=== PATIENT | male | born 1950 | race Caucasian/White ===

== ENCOUNTER 2016-10-28 14:07 | Inpatient (IN) | payer MEDICARE ==
[~2016-10-28] VITALS: Ht 182.9 cm; Wt 123.1 kg
--- NOTE | ~2016-10-28 | PN ---
PATIENT:GAGE ALONSO MEDICAL RECORD: [id number] LOCATION:DAVID Arvizu112 ADMISSION DATE: 10/28/16 PROGRESS NOTE DATE OF SERVICE: 11/16/2016 SUBJECTIVE: The patient's case was discussed with staff. He has no new complaint. OBJECTIVE: The patient is in good behavioral control with limited insight about his condition. He tolerates his medicines well. ASSESSMENT: No change in diagnoses. PLAN: The patient's family has decided to take him home. His son is going to live with the patient and his . The family made this decision based on the fact that they would have to sell their farm to place him in the alf and they do not want to do that. The is in agreement with this. This is contrary to our recommendations and contrary with the family has asked us to do. The importance of not allowing him to drink and providing 92-yqro-q-day supervision, that is independent of the elderly being present there, is important and was stressed to them. The family has agreed to do this. I am not entirely sure they are going to follow through with these recommendations, but they say they will. I do not approve of this placement, but it does not rise to the level of reporting it to the state authorities. This patient has the potential to be aggressive and dangerous particularly if he drinks and he should not drink at all and he should have supervision 24-hours a day should not drive and that supervision that he had should not be his , she is too old to frail, too small to handle him. TRANSINT:[id number] Voice Confirmation ID: [id number] DOCUMENT ID: [id number] LISA MCCRARY MD CC: [id number] DICTATION DATE: 11/16/16 1258 HOSPITAL INSURANCE REPRESENTATIVE: 11/16/16 1347 DIS IN 11/16/16 [facility] [address] [place] [address]
[2016-10-28] MEDS ORDERED: OXYBUTYNIN CHLOR5 MG PO (14:10)
[2016-10-28] MEDS ORDERED: ZITHROMAX500 MG PO (14:10)
[2016-10-28] MEDS ORDERED: ZESTORETIC 20-1 EACH PO (14:12)
[2016-10-28] MEDS ORDERED: KLONOPIN1 MG PO (14:13)
[2016-10-28] MEDS ORDERED: OMEPRAZOLE20 M1 PO (14:13)
[2016-10-28] MEDS ORDERED: ZOLOFT100 MG PO (14:14)
[2016-10-28] MEDS ORDERED: TRAZODONE HCL50 MG PO (14:14)
[2016-10-28] MEDS ORDERED: OMEGA 3 FISH OI1 CAP PO (14:15)
[2016-10-28] MEDS ORDERED: RED YEAST RICE600 MG PO (14:16)
[2016-10-28] MEDS ORDERED: HYDROCODONE-APA1 TAB PO (14:16)
[2016-10-28] MEDS ORDERED: CHOLESTYRAMIN4 G/PK1 PO (14:17)
[2016-10-28] MEDS ORDERED: VITAMIN D2 PO (14:21)
[2016-10-28] MEDS ORDERED: ASPIRIN EC81 M1 PO (15:58)
[2016-10-28] MEDS ORDERED: ACETAMINOPHEN325 MG PO (15:59)
[2016-10-28] MEDS ORDERED: ALPHAGAN 0.2%5 ML EACH EYE (16:00)
[2016-10-28] MEDS ORDERED: BENADRYL25 MG PO (16:02)
[2016-10-28] MEDS ORDERED: LOVENOX40 MG/0.4 SC (16:03)
[2016-10-28] MEDS ORDERED: [UNRECOGNIZED DRUG - OTHER] PO (16:07)
[2016-10-28] MEDS ORDERED: HALDOL5 MG/ML IM (16:08)
[2016-10-28] MEDS ORDERED: VITAMIN B-1100 M1 PO (16:09)
[2016-10-28] MEDS ORDERED: MULTIPLE VITAMI1 TA1 PO (16:09)
[2016-10-28] MEDS ORDERED: SEROQUEL25 MG PO (16:11)
[2016-10-28] MEDS ORDERED: NITROSTAT0.4 MG SL (16:12)
[2016-10-28] MEDS ORDERED: NALOXONE HC0.4 MG/M2 IV (16:13)
[2016-10-28] MEDS ORDERED: COREG 3.1253.125 MG PO (16:20)
[2016-10-28 18:42] VITALS: BP 100/60
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
[2016-10-28 20:00] LABS: APPEARANCE CLEAR (CLEAR); BILIRUBIN NEGATIVE (NEGATIVE); COLOR YELLOW (YELLOW); GLUCOSE NEGATIVE (NEGATIVE); KETONE NEGATIVE (NEGATIVE); LEUKOCYTE ESTERASE NEGATIVE (NEGATIVE); NITRITE NEGATIVE (NEGATIVE); PROTEIN NEGATIVE (NEGATIVE); SPECIFIC GRAVITY 1.015 (1.005-1.020); UROBILINOGEN NORMAL (NORMAL)
[2016-10-28 20:44] VITALS: BP 148/77
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
[2016-10-29 08:07] VITALS: BP 130/70
[2016-10-29 09:34] LABS: HEMOGLOBIN A1C 5.3 % (4.8-6.0)
[2016-10-29 09:47] LABS: CHOL - HDL RATIO 6.6 ratio (2.3-4.9); LDL-HDL RATIO 4.7 ratio (1.5-3.5); THYROID STIMULATING HORMONE 5.8 uIU/mL (0.36-3.74)
--- NOTE | 2016-10-29 10:30 | NUR ---
PATIENT REFUSES HIS NICOTINE PATCH, HIS REASONING IS THAT IF HE HAS A PATCH AND THEN SMOKES IT CAN MAKE HIM SICK, TRIED TO EXPLAIN TO HIM THAT HE WILL NOT BE SMOKING. PATIENTS EYES ARE ETREMELY RED AND HE REFUSES TO ALLOW NURSES TO PUT EYE DROPS IN HIS EYES, HE SAYS IT OLIVER.
--- NOTE | 2016-10-29 11:46 | NUR ---
B) PATIENT IS AWAKE AND ALERT, HE DOES NOT LIKE TO BE REDIRECTED. HE HAS BEEN SEEN TOUCHING OTHER PATIENTS. HE HAS HAD TO BE REDIRECTED. HE HAS TRIED TO BE HELPFUL, BUT WE HAD TO TELL HIM THAT STAFF WILL HELP. HE IS UPSET THAT HE HAS RULES. I) PROVIDE PRESCRIBED MEDS. R) PATIENT IS COMPLIANT WITH MEDS. P) CONTINUE POC.
--- NOTE | 2016-10-29 12:15 | NUR ---
PATIENT BEGINNING TO HALLUCINATE, HE SAYS "THE POLICE WILL BE HERE IN 15 MIBUTES TO ARREST EVERYONE AND THEY WILL BUST THE DOOR DOWN" PATIENT IS USING HIS HANDS TO LOOK THROUGH THOUGH THEY ARE BINOCULARS. PATIENT REFUSES TO LET ME TAKE HIS BP.
--- NOTE | 2016-10-29 12:17 | NUR ---
PATIENT IS EXIT SEEKING HE WOULD NOT ALLOW STAFF TO PASS THROUGH THE DOUBLE DOORS BY THE DAY ROOM.
--- NOTE | 2016-10-29 12:22 | NUR ---
JENNIFER SPANGLER CALLED AND STAFFING ANALYST SPEAKING WITH PATIENT. PATIENT IS MAKING PARANOID STATEMENTS STATING "YOU SHOULD HAVE SEEN HOW EVERYONE WAS TALKING TO ME, THEY RAN ME OUT OF THERE". DID GIVE PATIENT A 2 MG ATIVAN IM IN HIS LEFT DELTOID. PATIENT IS GETTING LOUDER AND LOUDER, ASKED THE STAFFING ANALYST TO STAY AWHILE UNTIL THE PATIENT WAS ABLE TO CALM HIMSELF. PATIENT HAS PICKED AT HIS ARMS AND THEY NOW LOOK LIKE SKIN TEARS.
--- NOTE | 2016-10-29 12:35 | NUR ---
CALLED PATIENT'S SPOUSE TO LET HER KNOW THAT VISITING TODAY WILL NOT BE A GOOD IDEA. LEFT A MESSAGE ON HER ANSWERING MACHINE. THE REASON IS THAT PATIENT IS BEING TOO VERBALLY THREATENING AND HE IS PARANOID WITH DELUSIONS, ATTEMPTING TO BE INTIMIDATING.
--- NOTE | 2016-10-29 13:30 | NUR ---
PATIENT IS STILL IRRITABLE, BUT HE IS NOT THREATENING, HE DID PEEL HIS SCAB OFF OF HIS ARM AND NOW IT IS A SKIN TEAR. DID CLEANSE AREA AND APPLIED A DRESSING.
--- NOTE | 2016-10-29 14:58 | NUR ---
SPOUSE UNDERSTANDS ABOUT NOT VISITING, BUT SHE DID BRING PATIENT SOME CLOTHES.
[2016-10-29 19:00] VITALS: BP 111/68
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
[2016-10-30 07:00] VITALS: BP 140/62
--- NOTE | 2016-10-30 12:55 | NUR ---
B) PATIENT ALERT AND COOPERATIVE WITH ASSESSMENT. SAYS HE HAS ALZHEIMERS AND IT HAPPENED QUICKLY, AND I JUST CAN NOT REMEMBER THINGS ANYMORE. NO AGGREESSION OR HALLUCINATIONS CURRENTLY. SELF-PROPELS IN WHEELCHAIR. DOES TRANSFER TO RECLINE TO REST HIS EYES. BILATERAL EYES VERY RED. I) ADMINISTERED PRESCRIBED MEDICATIONS, BUT PATIENT REFUSED NICOTINE PATCH, QUESTRAN AND EYE DROPS BECAUSE HIS EYES ARE BURNING. R) COMPLIANT WITH MOST OF MEDICATIONS. REDIRECT AND REORIENT NEEDED. P) MAINTAIN FALL PRECAUTIONS AND CONTINUE PLAN OF CARE.
[2016-10-30 19:30] VITALS: BP 104/61
--- NOTE | 2016-10-30 20:30 | NUR ---
RECEIVED IN HALLWAY SITTING OUTSIDE OF NURSES STATION SOCAILIZING WITH PEERS. VERY NEGATIVE. CALM AND COOPERATIVE WITH CARE. REDIRECT AND REORIENT NEEDED. CONTINUES TO SIT IN HALLWAY SOCIALIZING WITH PEERS. CONTINUE PLAN OF CARE
[2016-10-31 07:00] VITALS: BP 116/75
--- NOTE | 2016-10-31 11:00 | NUR ---
PATIENT IS ALERT THIS AM. ADMINISTERED PRESCRIBED MEDICATIONS. COMPLIANT WITH TAKING MEDS. ASSESSMENT COMPLETED. CONTINUE PLAN OF CARE.
--- NOTE | 2016-10-31 13:31 | PSY ---
PATIENT NAME:GAGE ALONSO MEDICAL RECORD: [id number] : 46 LOCATION:DAVID Romero2 ADMISSION DATE: 10/28/16 ACCOUNT: [id number] PSYCHIATRIC EVALUATION DATE OF EVALUATION: 10/29/16 Psychiatric Evaluation IDENTIFYING DATA: The patient is 66 years old and he is admitted to the hospital on a voluntary basis. CHIEF COMPLAINT: Confusion. HISTORY OF PRESENT ILLNESS: The patient was referred here from [facility]. He apparently was there with hyponatremia, probably secondary to drinking too much alcohol. He says that he has not had anything to drink for 2 weeks. He says prior to that, he would drink about 15 beers a day. Records from the transferring hospital indicated 6-10 beers a day. Apparently, he was not eating very much. His has left him; he says he has no idea why. They have been for many years and apparently stopped eating. He is only 66 years old, but he weighs 275 pounds, has not been eating, has been drinking too much. He also has some history of some back surgeries, but it seems that all of these things have made him pretty unstable on his feet. They did evaluate him at the other hospital for head trauma and there was no indication of any injury internally or externally. Apparently, he has a lot of depressive symptoms, but he has made no statements about wanting to harm himself. He has smoked for many years apparently drinks too much, although the exact amount is unknown and he clearly is having some cognitive impairment. PAST MEDICAL HISTORY: Significant for hypertension, chronic back pain and gastroesophageal reflux disease. PAST PSYCHIATRIC HISTORY: Significant for anxiety, depression and alcoholism. FAMILY HISTORY: Unknown. SOCIAL HISTORY: The patient has adult sons and a of many years, who has left him for reasons he does not seem to know. He is a retired chicken ruggiero and he has no history of legal entanglements. MENTAL STATUS EXAMINATION: The patient is awake, alert and oriented to person, place and somewhat to time and situation. His mood is flat. His affect is appropriate. Thought processes are circumstantial and his memory, concentration and abstraction abilities are moderately impaired. He denies that he would seek to harm himself or others. He denies psychotic symptoms. ALLERGIES: PENICILLIN. CURRENT MEDICATIONS: Lovenox, cholestyramine, aspirin, Seroquel, Zoloft, trazodone, Klonopin, Protonix, Ditropan, hydrochlorothiazide, lisinopril, thiamine and multivitamin. ASSETS: Stable living environment. LIABILITIES: Poor insight. DIAGNOSTIC IMPRESSION: AXIS I: Alcohol-related dementia, alcoholism and major depression. AXIS II: Deferred. AXIS III: Hypertension and obesity. AXIS IV: Moderate stressors. AXIS V: Global assessment of functioning is 35. PLAN: At this time, the patient is admitted to the hospital secondary to confusion, agitation and threatening behavior associated with a dementia cause from alcoholism. He will be comprehensively evaluated and arrangements will be made for the least restrictive environment that can meet his needs. He will be observed for alcohol withdrawal. His long-term prognosis is guarded. TRANSINT:[id number] Voice Confirmation ID: [id number] DOCUMENT ID: [id number] LISA MCCRARY MD at 1331 CC: [id number] DICTATION DATE: 10/29/16 0847 CHAIRMAN AND CEO: 10/29/16 1209 ADM IN [facility] [address] [place] [address]
[2016-10-31 20:00] VITALS: BP 131/64
--- NOTE | 2016-10-31 22:50 | NUR ---
RECEIVED IN HALLWAY OUTSIDE OF NURSES STATION. SOCIALIZING WITH PEERS AND STAFF. CALM AND COOPERATIVE WITH STAFF AND PEERS. CALM AND COOPERATIVE WITH CARE AND ASSESSMENTS. NO SIGNS OF AGGRESSION. RESTING IN BED EYES CLOSED. CONTINUE PLAN OF CARE
[2016-11-01 07:00] VITALS: BP 127/74
[2016-11-01 07:22] LABS: RAPID PLASMA REAGIN Non Reactive (Non Reactive)
--- NOTE | 2016-11-01 13:20 | PN ---
PATIENT:GAGE ALONSO MEDICAL RECORD: [id number] LOCATION:DAVID Romero ADMISSION DATE: 10/28/16 PROGRESS NOTE DATE OF SERVICE: 10/31/2016 SUBJECTIVE: The patient's case was discussed with staff. He has no new complaint. OBJECTIVE: The patient is in good behavioral control with limited insight about his condition. He tolerates his medicines well. ASSESSMENT: No change in diagnoses. PLAN: Brief supportive and educational interventions were made. The patient's long-term prognosis is guarded. He clearly is impaired cognitively. He has had no evidence of alcohol withdrawal and I am going to reduce his Klonopin slightly. TRANSINT:[id number] Voice Confirmation ID: [id number] DOCUMENT ID: [id number] LISA MCCRARY MD at 1320 CC: [id number] DICTATION DATE: 10/31/16 1340 RETAIL ADVISOR: 10/31/16 1454 ADM IN [place] [id number] [place] [address]
--- NOTE | 2016-11-01 13:59 | NUR ---
PATIENT IS PLEASANT. TOOK ALL MEDICATIONS WITHOUT DIFFICULTY. DRESSING TO RIGHT FOREARM DONE. HEALING NOTED. SITTING IN A CHAIR IN DAY ROOM. VISITING WITH THE OTHER RESTIDENTS.
[2016-11-01 19:15] VITALS: BP 131/70
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
--- NOTE | 2016-11-02 09:26 | NUR ---
PT ALERT, SITTING UP IN DAYROOM. PT AM MEDS ADMINISTERED. PT TOOK MEDS WITHOUT DIFFICULTY. PT DENIES NEEDS. WCTM.
[2016-11-02 18:25] VITALS: BP 131/66
--- NOTE | 2016-11-02 19:01 | NUR ---
RECEIVED IN DAYROOM. MOVING ABOUT SOCIALIZING WITH PEERS. CALM AND COOPERATIVE WITH CARE AND ASSESSMENTS. NO SIGNS OF AGGRESSION. REDIRECT AND REORIENT NEEDED. CONTINUES TO SIT QUIETLY IN WHEELCHAIR. CONTINUE PLAN OF CARE
[2016-11-02 20:18] VITALS: BP 127/69
--- NOTE | 2016-11-03 04:34 | PN ---
PATIENT:GAGE ALONSO MEDICAL RECORD: [id number] LOCATION:DAVID Romero ADMISSION DATE: 10/28/16 PROGRESS NOTE DATE OF SERVICE: 11/02/2016 SUBJECTIVE: The patient states that his came to pick him up last night. OBJECTIVE: The patient scored very poorly on the [facility] Mental Status exam (). He does have confirmed dementia and mcc placement is recommended. However, this has not been secured yet. On exam, mood is for the most part euthymic. Affect is shallow. Speech is somewhat tangential. Content of thought is negative for overt psychosis. Sensorium unchanged. ASSESSMENT: No change in diagnosis. PLAN: 1. Continue current medications. 2. Continue supportive therapy. TRANSINT:[id number] Voice Confirmation ID: [id number] DOCUMENT ID: [id number] USHA SANTO III, MD at 0434 CC: [id number] DICTATION DATE: 11/02/16 1138 SUPERVISOR GLUING: 11/02/16 1644 ADM IN [place] [id number] [place] [id number]
--- NOTE | 2016-11-03 04:38 | NUR ---
PATIENT LEFT HIS ROMM AT 01:30 AND CAME TO NURSES STATION, DEFIANT AND REFUSED TO GO BACK TO HIS ROOM, YELLING AND REDIRECTED TO GO BACK TO HIS ROOM, PATIENT DID GO BACK TO HIS ROOM ONLY TO RETURN AGAIN AT 01:50 REDIRECTED BACK TO HIS ROOM, VERBALLY ABUSIVE AND THREATING STAFF, PATIENT THEN ATTEMPTED TO STRIKE MHT, PATIENT PLACED ON FLOOR WHERE HE CONTINUED TO TRY TO STRIKE STAFF, PRN ATIVAN 2 MG IM AND HALDOL 2 MG IM GIVE FOR ANXIETY AND AGGRESSION, PATIENT REFUSED TO ALLOW STAFF TO ASSIST HIM IN BED OR A CHAIR, PATIENT PULLED COVERS OFF BED AND SLEPT IN THE FLOOR.WILL CONTINUE TO MONITOR.
[2016-11-03 08:00] VITALS: BP 114/65
--- NOTE | 2016-11-03 16:42 | NUR ---
PATIENT IS UPSET THAT HIS FAMILY JUST LEFT WHILE HE WAS IN THE BATHROOM. HE IS ANGRY WITH THEM AND BEGINNING TO ESCALATE AND BECOME IRRITABLE. DID PROVIDE ATIVAN 2 MG PO AND HALDOL 2 MG PO.
--- NOTE | 2016-11-03 17:40 | NUR ---
PATIENT IS SLEEPING IN DAY ROOM. NO PROBLEM AT THIS TIME.
[2016-11-03 19:45] VITALS: BP 91/54
--- NOTE | 2016-11-04 03:10 | NUR ---
B) Patient alert and oriented to self, calm and cooperative this shift, no behaviors noted, I) Administered schduled medication, redirected as needed, monitored for safety, R) Medication compliant, resting in bed, P) Continue plan of care.
--- NOTE | 2016-11-04 05:41 | PN ---
PATIENT:GAGE ALONSO MEDICAL RECORD: [id number] LOCATION:DAVID Romero ADMISSION DATE: 10/28/16 PROGRESS NOTE DATE OF SERVICE: 11/03/2016 SUBJECTIVE: No new complaint. OBJECTIVE: The patient continues to exhibit inappropriate behavior from time to time. He does require redirection. Additional history obtained from the patient's by case management indicates the patient was consuming on an average of 12-15 beers per day. On exam, the patient's mood is somewhat irritable. Affect is shallow. Speech is repetitive. Content of thought shows no evidence of overt psychosis. Sensorium is unchanged. ASSESSMENT: No change in diagnosis. PLAN: 1. Advance Seroquel to 100 mg b.i.d. 2. Continue other current medications. 3. Continue supportive therapy. TRANSINT:[id number] Voice Confirmation ID: [id number] DOCUMENT ID: [id number] USHA SANTO III, MD at 0541 CC: [id number] DICTATION DATE: 11/03/16 1234 BROOMCORN THRESHER: 11/03/162013 ADM IN [facility] [address] [place] [address]
--- NOTE | 2016-11-04 08:33 | NUR ---
B) PATIENT IS AWAKE AND ALERT, HE IS ORIENED TO SELF, BUT KNOWS HE IS HERE. HE CAN AMBULATE WITH A WALKER, BUT SITS IN A W/C AND SELF PROPELS MOSTLY. I) PROVIDE PRESCRIBED MEDS. R) PATIENT IS COMPLIANT WITH MEDS. P) CONTINUE POC.
--- NOTE | 2016-11-04 16:00 | NUR ---
LATE ENTRY FROM 11/03 SW MET WITH PT'S , VIVIANA, TO DISCUSS DISEASE PROGRESSION, DISCHARGE PLANS, AND MEDICATION REGIMEN. PT'S STATED SHE IS NOT ABLE TO CARE FOR PT AT HOME WHEN HE BECOMES AGGRESSIVE AND AGITATED. SW DISCUSSED CARE GIVING STRESS AND BURNOUT ALONG WITH SAFETY PRECAUTIONS WITH PT'S CARE. SW DISCUSSED RECOMMENDATIONS FOR PLACEMENT AT THIS TIME DUE TO PT'S COGNITION LEVEL.
[2016-11-04 20:03] VITALS: BP 117/63
--- NOTE | 2016-11-05 01:09 | NUR ---
B) Patient alert and oriented to self, restless at times, talks in a loud voice, I) Administered perscribed medications, PRN Ativan 0.5 mg PO and Haldol 2 mg PO given at HS R) Medication compliant, resting quietly in bed now. P) Continue plan of care.
--- NOTE | 2016-11-05 15:47 | NUR ---
PT RECEIVED SITTING IN CHAIR BY NURSE STATION. PT IS ALERT AND ORIENTED TO PERSON AND PLACE. PT DENIES PAIN. DENIES DEPRESSION, ANXIETY OR SI. NO HALLUCINATIONS OR DELUSIONS ARE NOTED OR REPORTED. PT HAS BEEN COOPERATIVE WITH STAFF AND COMPLIANT WITH MED'S AND CARE. PT HAS BEEN SOCIAL WITH PEERS. NO AGGRESSION NOTED. SAFETY MEASURES ARE IMPLEMENTED. WILL CONTINUE TO MONITOR AND CONTINUE WITH PLAN OF CARE.
[2016-11-05 15:57] VITALS: BP 135/60
[2016-11-05 19:30] VITALS: BP 144/77
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
--- NOTE | 2016-11-06 03:23 | NUR ---
B) Patient alert and oriented to self, calm and cooperative, social with peers and staff, I) Administered scheduled medications, monitored for safety, R) Medication compliant, no aggression noted, P) Continue plan of care.
[2016-11-06 07:00] VITALS: BP 133/73
--- NOTE | 2016-11-06 09:53 | NUR ---
PATIENT RECEIVED UP IN CHAIR BY DESK. ALERT AND ORIENTED. SOCIAL WITH OTHER PATIENTS. TOOK AM MEDS THIS AM WITHOUT DIFFICULTY. NO NEEDS NOTED. CONTINUE CURRENT PLAN OF CARE.
[2016-11-06 19:31] VITALS: BP 143/81
--- NOTE | 2016-11-06 20:02 | NUR ---
RECEIVED IN DAYROOM. SITTING IN DAYROOM IN WHEELCHAIR. SOCIALIZING WITH PEERS. CALM AND COOPERATIVE WITH CARE AND ASSESSMENTS. NO SIGNS OF AGGRESSION. CONTINUES TO SIT WITH PEERS. CONTINUE PLAN OF CARE
[2016-11-07 07:00] VITALS: BP 115/57
--- NOTE | 2016-11-07 09:52 | PN ---
PATIENT:GAGE ALONSO MEDICAL RECORD: [id number] LOCATION:DAVID Romero ADMISSION DATE: 10/28/16 PROGRESS NOTE DATE OF SERVICE: 11/06/2016 SUBJECTIVE: No new complaint. OBJECTIVE: The patient has continued to show some lability of affect but overall less agitation than before. On exam, mood is slightly irritable. Affect is shallow. Speech tends to be terse. Content of thought is negative for overt psychosis. Sensorium is unchanged. ASSESSMENT: No change in diagnosis. PLAN: 1. Continue all current medications. 2. Continue supportive therapy. TRANSINT:[id number] Voice Confirmation ID: [id number] DOCUMENT ID: [id number] USHA SANTO III, MD at 0952 CC: [id number] DICTATION DATE: 11/06/16613 CONVEYOR WORKER: 11/06/16 0726 ADM IN [place] [id number] [place] [id number]
--- NOTE | 2016-11-07 11:00 | NUR ---
RECEIVED AT NURSES DESK SITTING IN WHEELCHAIR. CALM AND COOPERATIVE WITH CARE AN ASSESSMENT. NO AGGRESSION NOTED. COMPLIANT WITH MEDICATIONS. VSS. SAFETY PRECAUTIONS MAINTAINED. CONTINUE PLAN OF CARE.
--- NOTE | 2016-11-07 14:08 | PN ---
PATIENT:GAGE ALONSO MEDICAL RECORD: [id number] LOCATION:DAVID Arvizu112 ADMISSION DATE: 10/28/16 PROGRESS NOTE DATE OF SERVICE: 11/01/2016 SUBJECTIVE: The patient's case was discussed with staff. He has no new complaint. OBJECTIVE: The patient is in good behavioral control with limited insight about his condition. He was tested by Dr. Tigist Kerr and scored in the severe range of impairment. I am a little surprised that he scored as poorly as he did. Obviously, he is more impaired than I had thought. He has good interpersonal and people skills, which is probably allowing him to appear less impaired than he actually is. ASSESSMENT: No change in diagnoses. PLAN: The patient currently is being treated with Klonopin for the purposes of alcohol withdrawal. I am going to continue to taper that medication. Today, I am going to reduce him down to 1 mg twice a day from 1 mg 3 times a day. I think his long-term prognosis is guarded. It is my understanding that his is looking for mcc placement and given the level of impairment that he has is not unreasonable. TRANSINT:[id number] Voice Confirmation ID: [id number] DOCUMENT ID: [id number] LISA MCCRARY MD at 1408 CC: [id number] DICTATION DATE: 11/01/16 1351 CABLE MECHANIC: 11/01/16 1649 ADM IN [place] [id number] [place] [address]
--- NOTE | 2016-11-07 19:32 | NUR ---
RECEIVED IN HALLWAY OUTSIDE OF NURSES STATION. SOCIALIZING WITH PEERS. CALM AND COOPERATIVE WITH CARE AND ASSESSMENTS. NO SIGNS OF AGGRESSION. REDIRECT AND REORIENT NEEDED. REMAINS CALM AND COOPERATIVE SITTING IN WHEELCHAIR. CONTINUE PLAN OF CARE
[2016-11-07 19:55] VITALS: BP 115/69
--- NOTE | 2016-11-08 09:35 | NUR ---
Nutrition Monitoring and Eval: Chart reviewed. Pt is eating 100% meal avg on an AHA diet. Meds and labs reviewed. Pt continues at low nutritional risk. Rec continue current diet. RD following.
[2016-11-08 09:39] VITALS: BP 136/70
--- NOTE | 2016-11-08 12:55 | PN ---
PATIENT:GAGE ALONSO MEDICAL RECORD: [id number] LOCATION:DAVID Arvizu112 ADMISSION DATE: 10/28/16 PROGRESS NOTE DATE OF SERVICE: 11/07/2016 SUBJECTIVE: The patient's case was discussed with staff. He has no new complaint. OBJECTIVE: The patient has fairly significant cognitive impairment. In fact, it is nearing the severe range. He repeatedly asks the same questions and does not like answers he is getting and then starts over asking the same questions, clearly not being able to remember what we had spoken about just a moment before. The basic subject of the situation is that he wants to go live in his house with his . Unfortunately, she is afraid of him and he has a long history of violent and threatening behaviors. Indeed, he has been quite aggressive here. He has rather primitive and limited coping skills and typically has apparently expressed his desires through intimidation. At this point, I am not sure what the least restrictive environment is. The is afraid of him, says she cannot handle him in the home. He is very advanced in his dementia and says that he will just go live in the [place]. Certainly working with the social service agency director and treatment team to find the least restrictive environment will be my primary goal over the next few days. I am going to increase his Klonopin secondary to the level of anger and agitation that he has. TRANSINT:[id number] Voice Confirmation ID: [id number] DOCUMENT ID: [id number] LISA MCCRARY MD at 1255 CC: [id number] DICTATION DATE: 11/07/16 1431 HEAT AND FROST INSULATOR: 11/07/16 1905 ADM IN [facility] [address] [place] [id number]
--- NOTE | 2016-11-08 14:09 | NUR ---
ALERT AND ORIENTED TO NAME AND PLACE, VERY LITTLE INSIGHT INTO ILLNESS. HE HAS BEEN CALM AND COOPERATIVE WITH CARE AND ASSESSMENT. SMILING AND SOCIAL WITH PEERS AND STAFF. REDIRECT AND REORIENT NEEDED. VSS. COMPLIANT WITH MEDICATIONS AND UNIT MILIEU. MAINTAIN FALL PRECAUTIONS. WILL CONT.POC.
--- NOTE | 2016-11-08 19:49 | NUR ---
RECEIVED IN HALLWAY. SITTING IN WHEELCHAIR SOCIALIZING WITH PEERS. CALM AND COOPERATIVE WITH CARE AND ASSESSMENTS. NO SIGNS OF AGGRESSION. REDIRECT AND REORIENT NEEDED. CONTINUES TO SOCIALIZE WITH PEERS. CONTINUE PLAN OF CARE
[2016-11-08 19:56] VITALS: BP 130/72
[2016-11-09 08:00] VITALS: BP 116/71
--- NOTE | 2016-11-09 10:00 | NUR ---
B) Rec'd pt. in dining room for b'fast, alert, appetite good, pleasant mood, cheerful and talkative. I) Meds admin as ordered. Group therapy provided. R) Erna meds will with no s/s adverse reaction. Participates in group therapy as directed. P) Cont plan of care including medications and group activity.
--- NOTE | 2016-11-09 15:24 | PN ---
PATIENT:GAGE ALONSO MEDICAL RECORD: [id number] LOCATION:[facility] ADMISSION DATE: 10/28/16 PROGRESS NOTE DATE OF SERVICE: 11/08/2016 SUBJECTIVE: The patient's case was discussed with staff. He has no new complaint. OBJECTIVE: The patient is in good behavioral control, although he certainly is unable to understand why he is not allowed to live with his . Just simply saying she will not let him live there because she is afraid of him just causes an argument. ASSESSMENT: No change in diagnoses. PLAN: Current medicines have been reviewed and will be maintained. Mcfp prognosis is guarded. Both supportive and educational interventions were made. TRANSINT:[id number] Voice Confirmation ID: [id number] DOCUMENT ID: [id number] LISA MCCRARY MD at 1524 CC: [id number] DICTATION DATE: 11/08/16 1301 FORM BLOCK MAKER: 11/08/[address] [facility] [address] [place] [address]
[2016-11-09 19:47] VITALS: BP 126/69
--- NOTE | 2016-11-10 04:48 | NUR ---
B) Patient alert and oriented to self and hospital, calm and cooperative this shift, no aggression noted, I) Administered scheduled medications, monitored for behaviors and for safety R) Medication compliant, P) Continue plan of care.
[2016-11-10 09:56] VITALS: BP 124/69
--- NOTE | 2016-11-10 10:38 | NUR ---
B) PATIENT IS AWAKE AND ALERT, HE IS COMPLIANT, HAS NOT SHOWN ANY AGGRESSION TODAY, HE IS IN A W/C SELF PROPELLING, BUT HE IS GETTING UP AND WALKING HIMSELF USING A WALKER. HE IS CALM, PARTICIPATING IN GROUPS. I) PROVIDE PRESCRIBED MEDS AND REDIRECT NEEDED. R) PATIENT IS COMPLIANT WITH MEDS AND UNIT MILIEU. P) CONTINUE POC.
--- NOTE | 2016-11-10 12:34 | PN ---
PATIENT:GAGE ALONSO MEDICAL RECORD: [id number] LOCATION:[facility] ADMISSION DATE: 10/28/16 PROGRESS NOTE DATE OF SERVICE: 11/09/2016 SUBJECTIVE: The patient's case was discussed with staff. He has no new complaint. OBJECTIVE: The patient is in better behavioral control. He shows evidence of significant cognitive impairment and did not argue with me about how he must go home because he built his own house. His is looking at placement. He does not qualify for a rehab stay because he is too ambulatory. ASSESSMENT: No change in diagnoses. PLAN: I have reduced the patient's Klonopin slightly. I would like to continue to taper this if possible. His long-term prognosis is guarded. TRANSINT:[id number] Voice Confirmation ID: [id number] DOCUMENT ID: [id number] LISA MCCRARY MD at 1234 CC: [id number] DICTATION DATE: 11/09/16 1539 BRINEYARD SUPERVISOR: 11/09/16 2224 ADM IN [place] [id number] [place] [address]
[2016-11-10 19:26] VITALS: BP 124/66
--- NOTE | 2016-11-11 02:43 | NUR ---
B) Patient is alert and oriented to self and being in a hospital, verbally aggressive to staff, paranoid and wanting to be a victim, I) Admistered scheduled medications, PRN Ativan 2 mg PO and Haldol 2 mg PO given at 22:22 for anxiety R) Medication compliant, resistant to redirection, defiant to staff, P) Continue plan of care.
[2016-11-11 08:42] VITALS: BP 117/65
[2016-11-11 10:15] VITALS: BP 117/65
--- NOTE | 2016-11-11 10:24 | NUR ---
B) PATIENT IS AWAKE AND ALERT, HE HAS SOME CONFUSION, HE IS ORIENTED X3. HE HAS NOT SHOWN ANY AGGRESSION TODAY. HE CAN AMBULATE WITH A WALKER AND HE ALSO SELF PROPELS IN A W/C. I) PROVIDE PRESCRIBED MEDS. R) PATIENT IS COMPLIANT WITH MEDS AND UNIT MILIEU. HE MAKES INAPPROPRIATE COMMENTS AT TIMES. HE NEEDS REDIRECTION. P) CONTINUE POC.
--- NOTE | 2016-11-11 10:54 | NUR ---
LATE ENTRY FROM 11/10 SW MET WITH PT'S TO DISCUSS DISCHARGE PLANNING. PT'S VERBALIZED UNDERSTANDING OF THE DISCUSSION.
--- NOTE | 2016-11-11 12:46 | PN ---
PATIENT:GAGE ALONSO MEDICAL RECORD: [id number] LOCATION:DAVID Romero ADMISSION DATE: 10/28/16 PROGRESS NOTE DATE OF SERVICE: 11/10/2016 SUBJECTIVE: The patient's case was discussed with staff. He has no new complaint. OBJECTIVE: The patient is in good behavioral control with limited insight about his condition. He generally tolerates his medicines well. He is walking about better. His testing from Dr. Kerr indicates severe level of impairment. ASSESSMENT: No change in diagnoses. PLAN: The patient will be maintained on current medications with the exception of the Klonopin, which I am going to reduce to 0.5 mg twice daily. The patient's long-term prognosis is guarded. He does indeed require a long-term placement in a assisted. TRANSINT:[id number] Voice Confirmation ID: [id number] DOCUMENT ID: [id number] LISA MCCRARY MD at 1246 CC: [id number] DICTATION DATE: 11/10/16 1249 SUPERVISOR DRY CELL ASSEMBLY: 11/10/16 1843 ADM IN [facility] [address] [place] [address]
[2016-11-11 19:30] VITALS: BP 119/54
--- NOTE | 2016-11-12 02:56 | NUR ---
B) Patient alert and oriented to self and being in a hospital, watching TV, social with peers, I) Administered scheduled medications, monitored for falls and safety, R) Medication compliant, no aggression noted this shift, P) Continue plan of care.
[2016-11-12 08:42] VITALS: BP 113/64
--- NOTE | 2016-11-12 09:50 | PN ---
PATIENT:GAGE ALONSO MEDICAL RECORD: [id number] LOCATION:[facility] ADMISSION DATE: 10/28/16 PROGRESS NOTE DATE OF SERVICE: 11/11/2016 SUBJECTIVE: The patient's case was discussed with staff. He has no new complaint. OBJECTIVE: The patient did receive p.r.n. Haldol and Ativan last night because of some agitation. He has no recollection of what occurred. He has very limited insight about his situation. He denies that he would seek to harm himself or others. He is angry with his , says that he built the house that they live in and that is wrong for her not to want him there. Interestingly, his family visited yesterday and he was extremely angry and rude with them. ASSESSMENT: No change in diagnoses. PLAN: Supportive and educational interventions were made. The patient's long-term prognosis is guarded. TRANSINT:[id number] Voice Confirmation ID: [id number] DOCUMENT ID: [id number] LISA MCCRARY MD at 0950 CC: [id number] DICTATION DATE: 11/11/16 1311 RADIOLOGY DIRECTOR: 11/11/16 1607 ADM IN [facility] [address] [place] [address]
--- NOTE | 2016-11-12 10:28 | NUR ---
B) PATIENT IS AWAKE AND ALERT, HE IS ORIENTED TO PERSON AND PLACE. HE DID RECEIVE A SHAVE THIS AM. HE SELF PROPELS IN HIS W/C AND HE CAN AMBULATE WITH A WALKER, BUT HE IS SITTING IN HIS W/C MOSTLY. I) PROVIDE PRESCRIBED MEDS. R) PATIENT IS COMPLIANT WITH MEDS, HE NEEDS REDIRECTION AT TIMES TO NOT BE SO FLIRTATIOUS. P) CONTINUE POC.
[2016-11-12 19:30] VITALS: BP 116/67
--- NOTE | 2016-11-13 04:21 | NUR ---
B) PATIENT ALERT AND ORIENTE D TO PERSON AND PLACE, CALM AND COOPERATIVE THIS SHIFT, I) ADMINISTERED SCHEDULED MEDICATIONS, REDIRECTED NEEDED, R) MEDICATION COMPLIANT, RESTING QUIETLY IN BED NOW, P) CONTINUE PLAN OF CARE.
[2016-11-13 07:00] VITALS: BP 129/68
[2016-11-13 08:00] VITALS: Ht 182.9 cm; Wt 123.1 kg
--- NOTE | 2016-11-13 08:30 | NUR ---
PT SITTING IN WHEELCHAIR, TALKING TO OTHER PTS. PT DENIES NEEDS AT THIS TIME. MAKING JOKES AND ACTING VERY CONTENT. CALM AND COOPERTATIVE. DENIES NEEDS AT THIS TIME, WILL CPOC.
--- NOTE | 2016-11-13 12:48 | PN ---
PATIENT:GAGE ALONSO MEDICAL RECORD: [id number] LOCATION:DAVID ArvizuAnnie ADMISSION DATE: 10/28/16 PROGRESS NOTE DATE OF SERVICE: 11/12/2016 SUBJECTIVE: The patient's case was discussed with staff. He has no new complaint. OBJECTIVE: The patient is in good behavioral control with limited insight about his condition. He tolerates his medicines well. Eye contact is fair. ASSESSMENT: No change in diagnoses. PLAN: Brief supportive and educational interventions were made. Usp prognosis is guarded. I am going to increase the dose of his Namenda to 5 mg twice daily. I do anticipate at some point further reducing the dose of the Klonopin. TRANSINT:[id number] Voice Confirmation ID: [id number] DOCUMENT ID: [id number] LISA MCCRARY MD at 1248 CC: [id number] DICTATION DATE: 11/12/16 0954 FINANCIAL INSTITUTION MANAGER: 11/12/16 1400 ADM IN [place] [id number] [place] [id number]
--- NOTE | 2016-11-13 18:02 | NUR ---
PT SITTING IN DINNING ROOM, RR EVEN AND UNLABORED. PT CALM AND COOPERATIVE. DENIES NEEDS, WILL CTM.
[2016-11-13 19:30] VITALS: BP 179/66
--- NOTE | 2016-11-13 20:48 | NUR ---
B) PT ROLLING AROUND IN WHEELCHAIR IN DAY ROOM. PT IS PLEASANT. ALERT AND ORIENTED AND ABLE TO VERBALIZE NEEDS. I) SHIFT ASSESSMENT COMPLETED AND MEDICATION GIVEN AT THIS TIME. R) PT TOOK MEDICATION WITH NO PROBLEMS. STATED HE WAS READY FOR HIS EYE DROPS. P) WILL CONTINUE CURRENT PLAN OF CARE.
[2016-11-14 07:00] VITALS: BP 118/69
--- NOTE | 2016-11-14 07:40 | NUR ---
ASSESSMENT COMPLETE. REDNESS NOTED TO BILAT SCLERA. EYE DROPS IN USE. MOOD PLEASANT AT THIS TIME. SITTING IN CHAIR IN HALLWAY TALKING WITH OTHERS.
--- NOTE | 2016-11-14 08:42 | NUR ---
AM MEDICATIONS TAKEN WITHOUT DIFFICULTY.
--- NOTE | 2016-11-14 11:08 | PN ---
PATIENT:GAGE ALONSO MEDICAL RECORD: [id number] LOCATION:DAVID Romero ADMISSION DATE: 10/28/16 PROGRESS NOTE DATE OF SERVICE: 11/13/2016 SUBJECTIVE: The patient's case was discussed with staff. He has no new complaint. OBJECTIVE: The patient denies intent to harm himself or others. He generally tolerates his medicines well. Eye contact is fair. ASSESSMENT: No change in diagnoses. PLAN: Brief supportive and educational interventions were made. The patient's long-term prognosis is guarded. I am going to taper his Klonopin slightly. TRANSINT:[id number] Voice Confirmation ID: [id number] DOCUMENT ID: [id number] LISA MCCRARY MD at 1108 CC: [id number] DICTATION DATE: 11/13/16 1233 BLURB WRITER: 11/13/162007 ADM IN [facility] [address] [place] [address]
--- NOTE | 2016-11-14 18:03 | NUR ---
SITTING IN DINING ROOM VISITING WITH OTHER PATIENTS. DENIES ANY NEEDS AT THIS TIME.
[2016-11-14 19:54] VITALS: BP 129/66
--- NOTE | 2016-11-14 20:33 | NUR ---
RECEIVED IN DINING ROOM AREA. SITTING IN WHEELCHAIR SOCIALIZING WITH PEERS. CALM AND COOPERATIVE WITH CARE AND ASSESSMENTS. NO SIGNS OF AGGRESSION. ENCOURAGE TO EXPRESS NEEDS. CONTINUES TO MOVE ABOUT SOCIASLIZING WITH PEERS. CONTINUE PLAN OF CARE
--- NOTE | 2016-11-15 07:40 | NUR ---
ASSESSMENT COMPLETE. RASH NOTED SCATTERED OVER FACE-MOSTLY AROUND NOSE.VISITING WITH OTHER PATIENTS.
[2016-11-15 08:00] VITALS: BP 115/79
--- NOTE | 2016-11-15 10:17 | PN ---
PATIENT:GAGE ALONSO MEDICAL RECORD: [id number] LOCATION:DAVID BeebeDarioAnnie ADMISSION DATE: 10/28/16 PROGRESS NOTE DATE OF SERVICE: 11/14/2016 SUBJECTIVE: The patient's case was discussed with staff. He has no new complaint. OBJECTIVE: The patient has very limited insight about his situation. He generally is cooperative, but continues to think that he has no impairment. He has not been aggressive today. ASSESSMENT: No change in diagnoses. PLAN: The patient will have his Klonopin reduce a little further. His long-term prognosis is guarded. Supportive and educational interventions were made. TRANSINT:[id number] Voice Confirmation ID: [id number] DOCUMENT ID: [id number] LISA MCCRARY MD at 1017 CC: [id number] DICTATION DATE: 11/14/16 1408 VESSEL BUILDER: 11/14/16 1631 ADM IN [facility] [address] [place] [address]
--- NOTE | 2016-11-15 11:03 | NUR ---
UPSET THAT HE IS NOT LEAVING TODAY. TRIED TO EXPLAIN THAT HE IS SUPPOSED TO DISCHARGE TOMORROW. STATES "THEY KEEP LYING TO ME".
--- NOTE | 2016-11-15 20:01 | NUR ---
RECEIVED IN DAYROOM. SITTING IN A CHAIR WITH PEERS BY HIS SIDE. SOCIALIZING AT TIMES. ALERT AND ORIENTED. CALM AND COOPERATIVE WITH CARE AND ASSESSMENTS. NO SIGNS OF AGGRESSION. CONTINUES TO SIT QUIETLY. CONTINUE PLAN OF CARE
[2016-11-15 21:15] VITALS: BP 126/71
[2016-11-16 07:58] VITALS: BP 116/72
[2016-11-16] MEDS ORDERED: LIPITOR10 MG PO (09:27)
[2016-11-16] MEDS ORDERED: LISINOPRIL10 MG PO (09:27)
[2016-11-16] MEDS ORDERED: PERPHENAZINE2 MG PO (09:30)
[2016-11-16] MEDS ORDERED: ZOLOFT100 MG PO (09:30)
[2016-11-16] MEDS ORDERED: PATANOL 0.1 % OP5 ML EACH EYE (09:31)
[2016-11-16] MEDS ORDERED: HCTZ25 MG PO (09:31)
[2016-11-16] MEDS ORDERED: SYNTHROID25 MCG PO (09:32)
--- NOTE | 2016-11-16 09:44 | NUR ---
ELÍAS MET WITH PT'S , VIVIANA, TO DISCUSS DISCHARGE PLANS. PT WILL BE RETURNING TO THE HOME ENVIRONMENT. FAMILY MADE AWARE OF PHYSICIANS CONCERNS IN REGARDS TO SAFETY. PHYSICIAN OPINION IS PT SHOULD BE IN FACILITY. DUE TO FINANCIAL REASONS PT'S FAMILY HAS DECIDED TO TAKE PT HOME. AGAIN MADE AWARE OF PHYSICIAN'S CONCERNS, SPOUSE STATED "I CAN'T AFFORD NH, SO I AM JUST GOING TO TAKE HIM HOME." VERBALIZED UNDERSTANDING OF DISCUSSION.
--- NOTE | 2016-11-16 11:11 | NUR ---
B) PATIENT IS ALERT AND OIRENTED TO SELF, HE HAS POOR SHORT TERM MEMORY RECALL. HE IS COMPLIANT WITH MEDS. HE AMBULATES WITH A WALKER. HE HAS NOT SHOWN ANY AGGRESSION TODAY. I) PROVIDE PRESCRIBED MEDS. R) PATIENT IS READY TO D/C NOW. P) PATIENT IS D/C TO HOME WITH HIS AND BROTHER HERE TO ASSIST. DID REITERATE THAT HE CAN NOT DRIVE OR DRINK WHEN HE LEAVES.
--- NOTE | 2016-11-16 12:49 | PN ---
PATIENT:GAGE ALONSO MEDICAL RECORD: [id number] LOCATION:DAVID Romero ADMISSION DATE: 10/28/16 PROGRESS NOTE DATE OF SERVICE: 11/15/2016 SUBJECTIVE: The patient's case was discussed with staff. He has no new complaint. OBJECTIVE: The patient denies intent to harm himself or others as well as psychotic symptoms. ASSESSMENT: No change in diagnoses. PLAN: The patient will have his Klonopin tapered slightly. He is still sleeping very well and showing no evidence of alcohol withdrawal. His cognition is severely impaired. He is very argumentative about insisting that he is only going to live in his house and nowhere else. When it is explained to him why this is not possible, it just leads to an argument that repeats itself. I anticipate he could be transitioned to the care home soon. TRANSINT:[id number] Voice Confirmation ID: [id number] DOCUMENT ID: [id number] LISA CMCRARY MD at 1249 CC: [id number] DICTATION DATE: 11/15/16 1027 MILL BEAM FITTER: 11/15/16 1040 DIS IN 11/16/16 [facility] [address] [place] [id number]
== END 2016-11-16 11:16 | disposition home or self-care (01) | DRG 897 ==
LOC: D.PSYCH 14:07
PROVIDERS: ADMIT Psychiatry & Neurology Psychiatry
DX: F10.27 Alcohol dependence with alcohol-induced persisting dementia (principal); F32.9 Major depressive disorder, single episode, unspecified; E66.9 Obesity, unspecified; I10 Essential (primary) hypertension; E03.9 Hypothyroidism, unspecified; N32.81 Overactive bladder; Z74.09 Other reduced mobility; K21.9 Gastro-esophageal reflux disease without esophagitis; E78.5 Hyperlipidemia, unspecified; Z72.0 Tobacco use; M54.5 Low back pain; G89.29 Other chronic pain; H10.45 Other chronic allergic conjunctivitis